=== PATIENT | female | born 1970 | race Caucasian/White ===

== ENCOUNTER 2018-09-08 02:02 | Emergency (ER) | payer MEDICAID ==
[~2018-09-08] VITALS: Ht 165.1 cm; Wt 82.0 kg
[~2018-09-08 02:02] MED LIST: ASMANEX; LEVO500T2 PO; METFORMIN; MONT10TA21 PO; P20 PO; P50 PO; PRED10TA23 PO; PROVENTIL
[2018-09-08] MEDS ORDERED: KETOROLAC 30MG/ML VIAL IM ONE (06:30)
[2018-09-08 08:15] VITALS: BP 130/82
== END 2018-09-08 08:24 | disposition home or self-care (01) ==
LOC: ER 02:02
DX: S93.602A Unspecified sprain of left foot, initial encounter (principal); J45.909 Unspecified asthma, uncomplicated; E11.9 Type 2 diabetes mellitus without complications; X50.1XXA Overexertion from prolonged static or awkward postures, initial encounter; Y93.89 Activity, other specified; Y92.9 Unspecified place or not applicable
CPT/HCPCS: 73610; 73630; 96372; 99283; J1885